=== PATIENT | female | born 1960 | race Caucasian/White ===

== ENCOUNTER 2025-02-06 09:03 | Inpatient (IN) ==
[2025-02-06] MEDS ORDERED: IOPAMIDOL 100 ML BOTTLE IV ONE (09:04)
[2025-02-06] MEDS: 0.9 % SODIUM CHLORIDE 1,000 ML IV ONE (09:47)
[2025-02-06 10:13] LABS: Basophils # (Auto) 0.02 K/mcL (0.00-0.30); Basophils % (Auto) 0.2 % (0.0-2.0); Eosinophils # (Auto) 0 K/mcL (0.00-0.70); Eosinophils % (Auto) 0 % (0.0-7.0); Hematocrit 40.6 % (34.1-44.9); Hemoglobin 13.2 g/dL (11.2-15.7); Lymphocytes # (Auto) 0.56 K/mcL (1.50-4.80); Lymphocytes % (Auto) 5.5 % (15.5-49.0); Mean Corpuscular HGB Conc 32.5 g/dL (31.0-36.0); Monocytes # (Auto) 0.36 K/mcL (0.10-0.90); Monocytes % (Auto) 3.5 % (1.0-12.0); Neutrophils % (Auto) 90.7 % (38.0-78.0); Platelet Count 358 K/mcL (140-440); RBC 4.31 M/mcL (3.59-5.38); WBC 10.2 K/mcL (4.5-11.0)
[2025-02-06 10:31] LABS: ALT/SGPT 17 U/L (<40); AST/SGOT 21 U/L (<32); Albumin 3.5 gm/dL (3.2-5.2); Albumin/Globulin Ratio 1.2 (1.0-2.3); Alkaline Phosphatase 67 U/L (39-117); Anion Gap 14.0 (8.0-16.0); Bilirubin,Total 0.4 mg/dL (0.1-1.0); Blood Urea Nitrogen 34 mg/dL (8-23); Calcium 8.5 mg/dL (8.6-10.4); Carbon Dioxide 20 mmol/L (22-30); Chloride 101 mmol/L (96-108); Globulin 2.9 gm/dL (2.2-3.7); Glucose 126 mg/dL (70-105); Potassium 4.0 mmol/L (3.3-5.1); Sodium 135 mmol/L (133-145)
[2025-02-06] MEDS: cefTRIAXone 2 GM in DEXTROSE 5% IN WATER 50 ML IV ONE (11:05)
[2025-02-06] MEDS: metroNIDAZOLE 500 MG/100 ML BAG IV ONE (11:38)
[2025-02-06] MEDS: metroNIDAZOLE 500 MG/100 ML BAG IV SCH ×2 (13:07→18:18)
[2025-02-06] MEDS: 0.9 % SODIUM CHLORIDE 1,000 ML IV SCH (13:44)
[2025-02-06] MEDS: LACTATED RINGERS 1,000 ML IV ONE ×2 (14:03→14:09)
[2025-02-06 14:28] LABS: INR 1.2 (0.9-1.1); Prothrombin Time 16.3 sec (11.9-14.5)
[2025-02-06] MEDS ORDERED: PROPOFOL 200 MG/20 ML VIAL IV ONE (15:30)
[2025-02-06] MEDS ORDERED: ROCURONIUM 10 MG/ML ML IV ONE ×2 (15:30→23:59)
[2025-02-06] MEDS ORDERED: ONDANSETRON 4 MG/2 ML VIAL ONE (15:30)
[2025-02-06] MEDS ORDERED: FAMOTIDINE/PF 20 MG/2 ML VIAL IV ONE (15:30)
[2025-02-06] MEDS ORDERED: SUCCINYLCHOLINE 200 MG/10 ML VIAL IV ONE (15:30)
[2025-02-06] MEDS ORDERED: DEXAMETHASONE 10 MG/ML VIAL ONE (15:30)
[2025-02-06] MEDS ORDERED: GLYCOPYRROLATE 0.2 MG/ML VIAL IV ONE (15:30)
[2025-02-06] MEDS ORDERED: LIDOCAINE 2% PF 5 ML VIAL ONE (15:30)
[2025-02-06] MEDS ORDERED: fentaNYL 100 MCG/2 ML VIAL ONE (15:31)
[2025-02-06] MEDS ORDERED: SUGAMMADEX SODIUM 200 MG/2 ML VIAL IV ONE (19:37)
[2025-02-06] MEDS ORDERED: PHENYLephrine 1 MG/10 ML SYRINGE (ANEST) ONE (20:05)
[2025-02-06] MEDS ORDERED: MAGNESIUM SULFATE 2 GM/50 ML BAG IV ONE (20:14)
[2025-02-06] MEDS ORDERED: HYDROmorphone 0.5 MG/0.5 ML SYRINGE ONE (20:23)
[2025-02-06] MEDS: ALBUMIN HUMAN 25 GM/100 ML BAG IV ONE (20:30)
[2025-02-06] MEDS ORDERED: VASOPRESSIN 20 UNIT/ML VIAL ONE (21:46)
[2025-02-06] MEDS ORDERED: ROPIVACAINE HCL/PF 30 ML VIAL IJ ONE (23:02)
[2025-02-07] MEDS: ALBUMIN HUMAN 25 GM/100 ML BAG IV ONE ×3 (00:58→01:22)
[2025-02-07] MEDS: ACETAMINOPHEN 1,000 MG/100 ML BAG IV SCH (00:59)
[2025-02-07] MEDS: ACETAMINOPHEN 1,000 MG/100 ML BAG IV ONE ×3 (01:21→06:20)
[2025-02-07] MEDS: METOCLOPRAMIDE 10 MG/2 ML VIAL IV SCH (01:26)
[2025-02-07] MEDS: CIPROFLOXACIN 400 MG/200 ML BAG IV SCH (02:10)
[2025-02-07] MEDS: CIPROFLOXACIN 400 MG/200 ML BAG IV ONE (02:33)
[2025-02-07] MEDS: METOCLOPRAMIDE 10 MG/2 ML VIAL ONE ×2 (02:33→06:20)
[2025-02-07 06:20] LABS: ALT/SGPT 10 U/L (<40); AST/SGOT 21 U/L (<32); Albumin 3.1 gm/dL (3.2-5.2); Albumin/Globulin Ratio 1.6 (1.0-2.3); Alkaline Phosphatase 38 U/L (39-117); Anion Gap 8.0 (8.0-16.0); Bilirubin,Direct 0.4 mg/dL (<0.3); Bilirubin,Total 0.3 mg/dL (0.1-1.0); Blood Urea Nitrogen 22 mg/dL (8-23); Calcium 7.7 mg/dL (8.6-10.4); Carbon Dioxide 23 mmol/L (22-30); Chloride 104 mmol/L (96-108); Globulin 1.9 gm/dL (2.2-3.7); Glucose 133 mg/dL (70-105); Phosphorous 2.6 mg/dL (2.5-4.5); Potassium 3.9 mmol/L (3.3-5.1); Sodium 135 mmol/L (133-145); Triglycerides 42 mg/dL (<150); Uric Acid 3.8 mg/dL (2.5-8.0)
[2025-02-07 06:41] LABS: Basophils # (Auto) 0.01 K/mcL (0.00-0.30); Basophils % (Auto) 0.1 % (0.0-2.0); Eosinophils # (Auto) 0 K/mcL (0.00-0.70); Eosinophils % (Auto) 0 % (0.0-7.0); Hematocrit 30.5 % (34.1-44.9); Hemoglobin 9.9 g/dL (11.2-15.7); Lymphocytes # (Auto) 0.38 K/mcL (1.50-4.80); Lymphocytes % (Auto) 4.2 % (15.5-49.0); Mean Corpuscular HGB Conc 32.5 g/dL (31.0-36.0); Monocytes # (Auto) 0.25 K/mcL (0.10-0.90); Monocytes % (Auto) 2.8 % (1.0-12.0); Neutrophils % (Auto) 92.8 % (38.0-78.0); Platelet Count 295 K/mcL (140-440); RBC 3.20 M/mcL (3.59-5.38); WBC 9.0 K/mcL (4.5-11.0)
[2025-02-07] MEDS ORDERED: ALBUMIN HUMAN 12.5 GM/50 ML VIAL IV SCH (09:00)
[2025-02-07] MEDS: ALBUMIN HUMAN 25 GM/100 ML BAG IV SCH (09:01)
[2025-02-07] MEDS: fentaNYL 100 MCG/2 ML VIAL IV PRN (12:24)
[2025-02-08 06:35] LABS: ALT/SGPT 11 U/L (<40); AST/SGOT 18 U/L (<32); Albumin 3.3 gm/dL (3.2-5.2); Albumin/Globulin Ratio 1.9 (1.0-2.3); Alkaline Phosphatase 31 U/L (39-117); Anion Gap 11.0 (8.0-16.0); Bilirubin,Direct < 0.2 mg/dL (0-0.3); Bilirubin,Total 0.2 mg/dL (0.1-1.0); Blood Urea Nitrogen 11 mg/dL (8-23); Calcium 7.7 mg/dL (8.6-10.4); Carbon Dioxide 19 mmol/L (22-30); Chloride 109 mmol/L (96-108); Globulin 1.7 gm/dL (2.2-3.7); Glucose 81 mg/dL (70-105); Phosphorous 1.6 mg/dL (2.5-4.5); Potassium 3.4 mmol/L (3.3-5.1); Sodium 139 mmol/L (133-145); Triglycerides 45 mg/dL (<150); Uric Acid 4.1 mg/dL (2.5-8.0)
[2025-02-08 06:49] LABS: Basophils # (Auto) 0 K/mcL (0.00-0.30); Basophils % (Auto) 0 % (0.0-2.0); Eosinophils # (Auto) 0 K/mcL (0.00-0.70); Eosinophils % (Auto) 0 % (0.0-7.0); Hematocrit 22.9 % (34.1-44.9); Hemoglobin 7.5 g/dL (11.2-15.7); Lymphocytes # (Auto) 0.70 K/mcL (1.50-4.80); Lymphocytes % (Auto) 8.1 % (15.5-49.0); Mean Corpuscular HGB Conc 32.8 g/dL (31.0-36.0); Monocytes # (Auto) 0.27 K/mcL (0.10-0.90); Monocytes % (Auto) 3.1 % (1.0-12.0); Neutrophils % (Auto) 88.6 % (38.0-78.0); Platelet Count 231 K/mcL (140-440); RBC 2.42 M/mcL (3.59-5.38); WBC 8.7 K/mcL (4.5-11.0)
[2025-02-08] MEDS: 0.9 % SODIUM CHLORIDE 250 ML IV SCH (12:22)
[2025-02-08] MEDS: 0.9 % SODIUM CHLORIDE 1,000 ML IV SCH (15:14)
[2025-02-08] MEDS: POTASSIUM PHOSPHATE 40 MEQ in DEXTROSE 5% IN WATER 500 ML IV SCH (17:02)
[2025-02-09 06:28] LABS: ALT/SGPT 11 U/L (<40); AST/SGOT 26 U/L (<32); Albumin 2.8 gm/dL (3.2-5.2); Albumin/Globulin Ratio 1.3 (1.0-2.3); Alkaline Phosphatase 41 U/L (39-117); Anion Gap 10.0 (8.0-16.0); Bilirubin,Direct 0.3 mg/dL (<0.3); Bilirubin,Total 0.4 mg/dL (0.1-1.0); Blood Urea Nitrogen 10 mg/dL (8-23); Calcium 7.8 mg/dL (8.6-10.4); Carbon Dioxide 18 mmol/L (22-30); Chloride 111 mmol/L (96-108); Globulin 2.1 gm/dL (2.2-3.7); Glucose 95 mg/dL (70-105); Phosphorous 2.4 mg/dL (2.5-4.5); Potassium 3.9 mmol/L (3.3-5.1); Sodium 139 mmol/L (133-145); Triglycerides 54 mg/dL (<150); Uric Acid 4.4 mg/dL (2.5-8.0)
[2025-02-09 06:31] LABS: Basophils # (Auto) 0 K/mcL (0.00-0.30); Basophils % (Auto) 0 % (0.0-2.0); Eosinophils # (Auto) 0.11 K/mcL (0.00-0.70); Eosinophils % (Auto) 1.0 % (0.0-7.0); Hematocrit 32.3 % (34.1-44.9); Hemoglobin 10.7 g/dL (11.2-15.7); Lymphocytes # (Auto) 1.20 K/mcL (1.50-4.80); Lymphocytes % (Auto) 11.2 % (15.5-49.0); Mean Corpuscular HGB Conc 33.1 g/dL (31.0-36.0); Monocytes # (Auto) 0.58 K/mcL (0.10-0.90); Monocytes % (Auto) 5.4 % (1.0-12.0); Neutrophils % (Auto) 81.9 % (38.0-78.0); Platelet Count 245 K/mcL (140-440); RBC 3.51 M/mcL (3.59-5.38); WBC 10.7 K/mcL (4.5-11.0)
[2025-02-09] MEDS: ONDANSETRON 4 MG/2 ML VIAL IV PRN (09:59)
[2025-02-09] MEDS: OCTREOTIDE ACETATE 100 MCG/ML VIAL SQ SCH (15:38)
[2025-02-10 06:11] LABS: Basophils # (Auto) 0.01 K/mcL (0.00-0.30); Basophils % (Auto) 0.1 % (0.0-2.0); Eosinophils # (Auto) 0.34 K/mcL (0.00-0.70); Eosinophils % (Auto) 4.0 % (0.0-7.0); Hematocrit 33.2 % (34.1-44.9); Hemoglobin 10.9 g/dL (11.2-15.7); Lymphocytes # (Auto) 1.28 K/mcL (1.50-4.80); Lymphocytes % (Auto) 14.9 % (15.5-49.0); Mean Corpuscular HGB Conc 32.8 g/dL (31.0-36.0); Monocytes # (Auto) 0.78 K/mcL (0.10-0.90); Monocytes % (Auto) 9.1 % (1.0-12.0); Neutrophils % (Auto) 70.0 % (38.0-78.0); Platelet Count 272 K/mcL (140-440); RBC 3.58 M/mcL (3.59-5.38); WBC 8.6 K/mcL (4.5-11.0)
[2025-02-10 06:17] LABS: ALT/SGPT 16 U/L (<40); AST/SGOT 39 U/L (<32); Albumin 2.6 gm/dL (3.2-5.2); Albumin/Globulin Ratio 1.2 (1.0-2.3); Alkaline Phosphatase 45 U/L (39-117); Anion Gap 9.0 (8.0-16.0); Bilirubin,Direct 0.3 mg/dL (<0.3); Bilirubin,Total 0.3 mg/dL (0.1-1.0); Blood Urea Nitrogen 11 mg/dL (8-23); Calcium 7.9 mg/dL (8.6-10.4); Carbon Dioxide 20 mmol/L (22-30); Chloride 110 mmol/L (96-108); Globulin 2.1 gm/dL (2.2-3.7); Glucose 106 mg/dL (70-105); Phosphorous 2.5 mg/dL (2.5-4.5); Potassium 4.1 mmol/L (3.3-5.1); Sodium 139 mmol/L (133-145); Triglycerides 80 mg/dL (<150); Uric Acid 4.4 mg/dL (2.5-8.0)
[2025-02-10] MEDS: OCTREOTIDE ACETATE 1,000 MCG/ML VIAL IV SCH (15:39)
[2025-02-10] MEDS: OCTREOTIDE ACETATE 100 MCG/ML VIAL IV SCH (17:11)
[2025-02-11 06:34] LABS: Basophils # (Auto) 0.03 K/mcL (0.00-0.30); Basophils % (Auto) 0.4 % (0.0-2.0); Eosinophils # (Auto) 0.40 K/mcL (0.00-0.70); Eosinophils % (Auto) 4.7 % (0.0-7.0); Hematocrit 33.0 % (34.1-44.9); Hemoglobin 10.9 g/dL (11.2-15.7); Lymphocytes # (Auto) 1.42 K/mcL (1.50-4.80); Lymphocytes % (Auto) 16.6 % (15.5-49.0); Mean Corpuscular HGB Conc 33.0 g/dL (31.0-36.0); Monocytes # (Auto) 0.89 K/mcL (0.10-0.90); Monocytes % (Auto) 10.4 % (1.0-12.0); Neutrophils % (Auto) 62.6 % (38.0-78.0); Platelet Count 315 K/mcL (140-440); RBC 3.56 M/mcL (3.59-5.38); WBC 8.5 K/mcL (4.5-11.0)
[2025-02-14 11:18] VITALS: O2SAT 94
[2025-02-14 15:09] VITALS: TEMP 97
== END 2025-02-14 15:10 | disposition home health service (06) | DRG 329 ==
LOC: ED 09:03 → SUR 14:39 → ICU 02-07 00:32 → MEDSUR 02-10 09:33
PROVIDERS: ADMIT Family Medicine Adult Medicine; ATTEND Family Medicine Adult Medicine